=== PATIENT | male | born 1945 | race Caucasian/White ===

== ENCOUNTER → 2020-05-19 | Outpatient (CLI) | payer MEDICARE ==
--- NOTE | 2020-05-19 11:21 | Diagnostic Imaging Report ---
PROCEDURE: CT abdomen and pelvis without contrast. TECHNIQUE: Multiple contiguous axial images were obtained through the abdomen and pelvis without the use of intravenous contrast. Auto Exposure Controls were utilized during the CT exam to meet ALARA standards for radiation dose reduction. INDICATION: Prostate carcinoma. COMPARISON: No prior studies are available for comparison. FINDINGS: Calcified nodules in left lower lobe are noted consistent with granulomas. No liver mass is identified. Gallbladder is unremarkable. There is no biliary ductal dilatation. Pancreas and spleen are unremarkable apart from a subtle low-density region within the spleen measuring 2.2 cm. No adrenal mass is detected. No calculi or hydronephrosis is identified. Aorta is calcified but nonaneurysmal. No central retroperitoneal or mesenteric lymphadenopathy is identified. There is diverticulosis of the descending and sigmoid colon but no evidence of acute diverticulitis. The bowel loops are normal caliber. There is no obstruction. There is no free fluid. Bladder is unremarkable. Prostate is enlarged. No definite pelvic lymphadenopathy is identified. No osteoblastic lesions are seen. IMPRESSION: 1. No evidence of abdominal or pelvic lymphadenopathy. There is prostatomegaly and uncomplicated diverticulosis. There is a low-density lesion in the spleen which is indeterminate. The remainder of the study is unremarkable. Dictated by: Dictated on workstation # [id number]
--- NOTE | 2020-05-19 14:27 | Diagnostic Imaging Report ---
INDICATION: Prostate carcinoma. TECHNIQUE: The patient was administered 27 mCi of technetium 99m MDP intravenously and whole-body imaging was performed after a 3 hour delay. COMPARISON: No prior studies are available for comparison. FINDINGS: Normal uptake of activity by the axial and appendicular skeleton is noted. There is uptake by the kidneys with excretion into the urinary bladder. No suspicious foci are identified to suggest osseous metastatic disease. IMPRESSION: No scintigraphic evidence of osseous metastatic disease. Dictated by: Dictated on workstation # [id number]
== END ==
LOC: CARD 10:30
PROVIDERS: ATTEND Urology
DX: C61 Malignant neoplasm of prostate (principal)
CPT/HCPCS: 74176; 78306; A9503

== ENCOUNTER 2020-06-15 12:58 | Outpatient (RCR) | payer MEDICARE | END 2020-09-13 | disposition home or self-care (01) | LOC: ONC 12:58 | PROVIDERS: ATTEND Radiology Radiation Oncology | DX: C61 Malignant neoplasm of prostate (principal); I10 Essential (primary) hypertension; Z98.890 Other specified postprocedural states | CPT/HCPCS: 99204 ==

== ENCOUNTER 2021-01-19 05:29 | Outpatient (CLI) | payer MEDICARE ==
[~2021-01-19] VITALS: Ht 180.3 cm; Wt 94.5 kg
[2021-01-19] MEDS ORDERED: PERI8TAB2 PO (13:41)
[2021-01-19] MEDS ORDERED: PANT40TA52 PO (13:41)
[2021-01-19] MEDS ORDERED: TMSL.4C PO (13:41)
[2021-01-19] MEDS ORDERED: LORA10CA PO (13:41)
[2021-01-19] MEDS ORDERED: SIMV40TA25 PO (13:41)
== END 2021-01-19 14:12 | disposition home or self-care (01) ==
LOC: PREOP 05:29
PROVIDERS: ATTEND Urology
DX: Z01.818 Encounter for other preprocedural examination (principal)

== ENCOUNTER 2021-01-26 06:45 | Day surgery (SDC) | payer MEDICARE ==
[~2021-01-26] VITALS: Ht 180 cm; Wt 94.5 kg
[2021-01-26] VITALS (10 sets, daily range): BP systolic 106–153; BP diastolic 75–94
[~2021-01-26 06:45] MED LIST: LORA10CA PO; PANT40TA52 PO; PERI8TAB2 PO; SIMV40TA25 PO; TMSL.4C PO
[2021-01-26] MEDS ORDERED: cefTRIAXone 1,000 MG in WATER (STERILE) FOR INJECTION 10 ML IV ONE (07:00)
--- NOTE | 2021-01-26 07:19 | Progress Note-Pre Operative ---
Pre-Operative Progress Note H&P Reviewed The H&P was reviewed, patient examined and no changes noted. Date Seen by Provider: Jan 26, 2021 Time Seen by Provider: 07:18 Date H&P Reviewed: Jan 26, 2021 Time H&P Reviewed: 07:18 Pre-Operative Diagnosis: CA PROSTATE GALDINO HARVEY MD Jan 26, 2021 07:19
--- NOTE | 2021-01-26 07:22 | Progress Note-Post Operative ---
Post-Operative Progess Note Surgeon (s)/Prototype Engineer (s) Surgeon GALDINO HARVEY MD Prototype Engineer: MD SANTIAGO Pre-Operative Diagnosis CA PROSTATE Post-Operative Diagnosis SAME Procedure & Operative Findings Date of Procedure 01/26/21 Procedure Performed/Findings BRACHYTHERAPY, SPACE OAR, AND CYSTOGRAM Anesthesia Type GENERAL Estimated Blood Loss Estimated blood loss (mL): NEGLIGIBLE Specimens/Packing Specimens Removed NONE Packing: NONE GALDINO HARVEY MD Jan 26, 2021 07:22
--- NOTE | 2021-01-26 07:30 | Discharge Inst-Urology ---
Discharge Inst-Urology Reconcile Patient Problems Problems Reviewed?: Yes Final Diagnosis CA PROSTATE Patient Instructions/Follow Up Plan/Assessment/Instructions Discharge with kuhn and leg bag day time and large bag night time with instructions Come to office sunday 11am to DADA K[facility]n Please make appointment to been seen in office in 2 weeks. Rest till then Keep bowels soft and moving Showers, no bath Increase oral fluids for 48 hours and then as needed. Diet as tolerated. If questions or concerns contact your physician Or seek help at emergency department. GALDINO HARVEY MD Jan 26, 2021 07:30
[2021-01-26] MEDS: LACTATED RINGERS 1,000 ML IV PRN ×2 (07:41→11:07)
[2021-01-26] MEDS ORDERED: fentaNYL INJ 100 MCG/2 ML AMP ONE (09:32)
[2021-01-26] MEDS ORDERED: LIDOCAINE 2% 20 ML (XYLOCAINE) VIAL ONE (09:44)
[2021-01-26] MEDS ORDERED: LIDOCAINE PF 2% 5 ML (XYLOCAINE) VIAL ONE (09:44)
[2021-01-26] MEDS ORDERED: proPOfol 200 MG/20 ML (DIPRIVAN) VIAL IV ONE (09:44)
[2021-01-26] MEDS ORDERED: ONDANSETRON 4 MG/2 ML (SDV) Z0FRAN ONE (09:44)
[2021-01-26] MEDS ORDERED: BACITRACIN OINTMENT 28 GM TUBE ONE (09:50)
[2021-01-26] MEDS ORDERED: SEVOFLURANE (ULTANE) 15 ML INHAL SOLN ONE (10:38)
[2021-01-26] MEDS ORDERED: PHEN-640 PO (11:07)
[2021-01-26] MEDS ORDERED: CIPR-225 PO (11:07)
[2021-01-26] MEDS ORDERED: KETO10TA PO (11:07)
--- NOTE | 2021-01-26 12:52 | Diagnostic Imaging Report ---
INDICATION: Prostate carcinoma. TECHNIQUE: Single intraprocedural images prostate bed FINDINGS/ IMPRESSION: The hospital radiology department provided fluoroscopic imaging in support of an interventional procedure. A radiologist was not present. Please reference the operating provider's procedure note. Fluoroscopy Time: 16.6 seconds Dictated by: Dictated on workstation # [id number]
--- NOTE | 2021-01-26 13:32 | Anesthesia-General Post-Op ---
General Patient Condition Mental Status/LOC: Same as Preop Cardiovascular: Satisfactory Nausea/Vomiting: Absent Respiratory: Satisfactory Pain: Controlled Complications: Absent Post Op Complications Complications None Follow Up Care/Instructions Patient Instructions None needed. Anesthesia/Patient Condition Patient Condition Patient is doing well, no complaints, stable vital signs, no apparent adverse anesthesia problems. No complications reported per nursing. SHYANN LOTT CRNA Jan 26, 2021 13:32
== END 2021-01-26 13:30 | disposition home or self-care (01) ==
LOC: SDC 06:45
PROVIDERS: ATTEND Urology
DX: C61 Malignant neoplasm of prostate (principal); K21.9 Gastro-esophageal reflux disease without esophagitis; I25.10 Atherosclerotic heart disease of native coronary artery without angina pectoris; I10 Essential (primary) hypertension; E78.00 Pure hypercholesterolemia, unspecified; Z98.890 Other specified postprocedural states; Z79.899 Other long term (current) drug therapy
CPT/HCPCS: 55874; 55876; 76000; 76965; 77290; 77318; 77332; 77370; 77470; 77778; 87081; C1715 ×2; C1889; C2643

== ENCOUNTER 2021-02-13 14:36 | Emergency (ER) | payer MEDICARE ==
[~2021-02-13] VITALS: Ht 180 cm; Wt 94.0 kg
[~2021-02-13 14:36] MED LIST changes: +CIPR-225 PO; +KETO10TA PO; +PHEN-640 PO
--- NOTE | 2021-02-13 14:58 | ED GU-Male ---
General Chief Complaint: - Reproductive Stated Complaint: TROUBLE URINATING/ABD PROTRUSION Source: patient Exam Limitations: no limitations History of Present Illness Date Seen by Provider: Feb 13, 2021 Time Seen by Provider: 14:45 Initial Comments Patient to the ER by private conveyance from home with chief complaint of not being able to have a full neck duration since 6:00 yesterday evening. He is being treated by Dr. Harvey for prostatic cancer and recently had radioactive pellets placed. He was not having any discharge or hematuria or fevers. No nausea vomiting or abdominal pain just a feeling of fullness in his suprapubic region. No history of abdominal surgeries. He is not on blood thinners. Allergies and Home Medications Allergies Coded Allergies: No Known Drug Allergies (Unverified , 01/19/21) Patient Home Medication List Home Medication List Reviewed: Yes Ciprofloxacin HCl (Cipro) 500 Mg Tablet, 500 MG PO BID Prescribed by: KAITLYNN BARRIOS on 01/26/21 110 Ketorolac Tromethamine (Ketorolac Tromethamine) 10 Mg Tablet, 10 MG PO Q6H Prescribed by: KAITLYNN BARRIOS on 01/26/21 110 Loratadine (Claritin) 10 Mg Capsule, 10 MG PO DAILY, (Reported) Entered as Reported by: LANIE MAN on 01/19/21 134 Pantoprazole Sodium (Pantoprazole Sodium) 40 Mg Tablet.dr, 40 MG PO BID, (Reported) Entered as Reported by: LANIE MAN on 01/19/21 134 Perindopril Erbumine (Perindopril Erbumine) 8 Mg Tablet, 8 MG PO DAILY, (Reported) Entered as Reported by: LANIE MAN on 01/19/21 134 Phenazopyridine HCl (Pyridium) 200 Mg Tablet, 1 TAB PO TID Prescribed by: KAITLYNN BARRIOS on 01/26/21 110 Simvastatin (Simvastatin) 40 Mg Tablet, 40 MG PO DAILY, (Reported) Entered as Reported by: LANIE MAN on 01/19/21 134 Tamsulosin HCl (Flomax) 0.4 Mg Cap, 0.4 MG PO DAILY, (Reported) Entered as Reported by: LANIE MAN on 01/19/21 134 Review of Systems Review of Systems Constitutional: No chills, No diaphoresis EENTM: No ear discharge, No ear pain Respiratory: No cough, No short of breath Cardiovascular: No chest pain, No edema Gastrointestinal: abdominal pain; No constipation, No diarrhea, No nausea Genitourinary: see HPI; denies dysuria Musculoskeletal: No back pain, No joint pain All Other Systemes Reviewed Negative Unless Noted: Yes Past Szwcnzo-Kdfugi-Dpachv Hx Patient Social History Tobacco Use?: No Use of E-Cig and/or Vaping dev: No Substance use?: No Immunizations Up To Date First/Initial COVID19 Vaccinat: AUGUST 19, 2020 Second COVID19 Vaccination Maged: AUGUST 19, 2020 Seasonal Allergies Seasonal Allergies: Yes Past Medical History Surgeries: Yes (TRUS PROSTATE BX, COLONOSCOPY, HEART CATH, ROTATOR CUFF) Respiratory: No Currently Using CPAP: No Currently Using BIPAP: No Cardiac: Yes (CARDIOVASCULAR DX, CARDIAC STENTS) Heart Attack, High Cholesterol, Hypertension Neurological: No Genitourinary: Yes (BPH WITH LUTS) Benign Prostatic Hyperpl, Prostate Problems Gastrointestinal: Yes Gastroesophageal Reflux, Hiatal Hernia Musculoskeletal: Yes Arthritis Endocrine: No HEENT: Yes Cataract Hearing Impairment: Hard of Hearing Prostate Psychosocial: No Integumentary: No Blood Disorders: No Physical Exam Vital Signs Vital Signs - First Documented 02/13/21 14:45 Temp 36.4 Pulse 91 Resp 18 B/P (MAP) 189/100 (129) Pulse Ox 96 Capillary Refill : Height, Weight, BMI Height: '" Weight: lbs. oz. kg; 29.16 BMI Method: General Appearance: WD/WN, no apparent distress HEENT: PERRL/EOMI, pharynx normal Neck: full range of motion, normal inspection Cardiovascular: normal peripheral pulses, regular rate, rhythm Respiratory: lungs clear, normal breath sounds, no respiratory distress, no accessory muscle use Gastrointestinal: normal bowel sounds, soft, tenderness (Suprapubic with palpable) Neurologic/Psychiatric: alert, normal mood/affect, oriented x 3 Skin: normal color, warm/dry Progress/Results/Core Measures Suspected Sepsis SIRS Temperature: Pulse: Respiratory Rate: Laboratory Tests 02/13/21 14:52: White Blood Count 7.4 Blood Pressure / Mean: Laboratory Tests 02/13/21 14:52: Creatinine 0.96, Platelet Count 198, Total Bilirubin 0.9 Results/Orders Lab Results Laboratory Tests Test 02/13/21 14:52 02/13/21 15:15 Range/Units White Blood Count 7.4 4.3-11.0 10^3/uL Red Blood Count 4.00 L 4.30-5.52 10^6/uL Hemoglobin 12.5 L 13.3-17.7 g/dL Hematocrit 37 L 40-54 % Mean Corpuscular Volume 92 80-99 fL Mean Corpuscular Hemoglobin 31 25-34 pg Mean Corpuscular Hemoglobin Concent 34 32-36 g/dL Red Cell Distribution Width 12.0 10.0-14.5 % Platelet Count 198 130-400 10^3/uL Mean Platelet Volume 9.5 9.0-12.2 fL Immature Granulocyte % (Auto) 1 % Neutrophils (%) (Auto) 75 42-75 % Lymphocytes (%) (Auto) 14 12-44 % Monocytes (%) (Auto) 9 0-12 % Eosinophils (%) (Auto) 2 0-10 % Basophils (%) (Auto) 1 0-10 % Neutrophils # (Auto) 5.5 1.8-7.8 10^3/uL Lymphocytes # (Auto) 1.0 1.0-4.0 10^3/uL Monocytes # (Auto) 0.7 0.0-1.0 10^3/uL Eosinophils # (Auto) 0.1 0.0-0.3 10^3/uL Basophils # (Auto) 0.0 0.0-0.1 10^3/uL Immature Granulocyte # (Auto) 0.1 0.0-0.1 10^3/uL Sodium Level 138 135-145 MMOL/L Potassium Level 3.0 L 3.6-5.0 MMOL/L Chloride Level 102 98-107 MMOL/L Carbon Dioxide Level 22 21-32 MMOL/L Anion Gap 14 5-14 MMOL/L Blood Urea Nitrogen 9 7-18 MG/DL Creatinine 0.96 0.60-1.30 MG/DL Estimat Glomerular Filtration Rate 76 BUN/Creatinine Ratio 9 Glucose Level 111 H 70-105 MG/DL Calcium Level 9.2 8.5-10.1 MG/DL Corrected Calcium 9.4 8.5-10.1 MG/DL Total Bilirubin 0.9 0.1-1.0 MG/DL Aspartate Amino Transf (AST/SGOT) 19 5-34 U/L Alanine Aminotransferase (ALT/SGPT) 38 0-55 U/L Alkaline Phosphatase 77 40-136 U/L C-Reactive Protein High Sensitivity 0.90 H 0.00-0.50 MG/DL Total Protein 6.2 L 6.4-8.2 GM/DL Albumin 3.7 3.2-4.5 GM/DL Urine Color YELLOW Urine Clarity CLEAR Urine pH 6.0 5-9 Urine Specific [place] <=1.005 1.016-1.022 Urine Protein NEGATIVE NEGATIVE Urine Glucose (UA) NEGATIVE NEGATIVE Urine Ketones NEGATIVE NEGATIVE Urine Nitrite NEGATIVE NEGATIVE Urine Bilirubin NEGATIVE NEGATIVE Urine Urobilinogen 0.2 < = 1.0 MG/DL Urine Leukocyte Esterase NEGATIVE NEGATIVE Urine RBC (Auto) 3+ H NEGATIVE Urine RBC 10-25 H /HPF Urine WBC NONE /HPF Urine Crystals NONE /LPF Urine Bacteria NEGATIVE /HPF Urine Casts NONE /LPF Urine Mucus NEGATIVE /LPF Urine Culture Indicated NO My Orders Orders - SHABNAM WITT Bladder Scan (02/13/21 14:41) Ed Iv/Invasive Line Start (02/13/21 14:54) Cbc With Automated Diff (02/13/21 14:54) Comprehensive Metabolic Panel (02/13/21 14:54) Hs C Reactive Protein (02/13/21 14:54) Ua Culture If Indicated (02/13/21 14:59) Lidocaine 2% (Urojet) (Xylocaine Urojet) (02/13/21 15:00) Catheter(Urinary) Insert & Ass 03,15 (02/13/21 14:59) Medications Given in ED Current Medications Medications Dose Ordered Sig/Maurice Route Start Time Stop Time Status Last Admin Dose Admin Lidocaine HCl 10 ml ONCE ONCE TOP 02/13/21 15:00 02/13/21 15:01 DC 02/13/21 15:19 10 ML Vital Signs/I&O 02/13/21 14:45 Temp 36.4 Pulse 91 Resp 18 B/P (MAP) 189/100 (129) Pulse Ox 96 Capillary Refill : Progress Note #1: Time: 14:58 Progress Note If the bladder scan is positive we will put a Duffy catheter and using Urojet and decompress his bladder getting some urine. Progress Note #2: Time: 16:12 Progress Note Bladder scan revealed 500 cc however he put out a liter and was clamped for about half an hour before unclamping and he put out another liter of urine. He feels much more comfortable. He has worn a leg bag and Duffy catheter in the past. Conservative teaching was given. He has follow-up appointment in about [address] Harvey, urology Departure Impression Primary Impression: Acquired urinary tract obstruction Disposition: 01 HOME, SELF-CARE Condition: Improved Departure-Patient Inst. Decision time for Depature: 16:13 Referrals: BENTLEY MAN MD (PCP/Family) Primary Care Physician GALDINO HARVEY MD Patient Instructions: Urinary Obstruction (DC) Add. Discharge Instructions: Drink plenty of fluids. Keep the catheter area clean with regular soap and water only. Keep your follow-up appointment with Dr. Harvey, urology. If you are having difficulty getting urine to flow from the catheter then return to the ER or call the urologist during business hours I suspect the area on your right forehead may be a squamous cell cancer and I would recommend you follow-up with your primary care doctor or box worker for biopsy and removal. All discharge instructions reviewed with patient and/or family. Voiced understanding. Copy Copies To 1: GALDINO HARVEY MD, TITUS J Feb 13, 2021 14:58
[2021-02-13] MEDS ORDERED: LIDOCAINE UROJET 2% GEL 10 ML PKG TOP ONE (15:00)
[2021-02-13 15:04] LABS: BASOPHILS % (AUTO) 1 % (0-10); EOSINOPHILS # (AUTO) 0.1 10^3/uL (0.0-0.3); EOSINOPHILS % (AUTO) 2 % (0-10); HEMATOCRIT 37 % (40-54); HEMOGLOBIN 12.5 g/dL (13.3-17.7); LYMPHOCYTES % (AUTO) 14 % (12-44); MEAN CORPUSCULAR HEMOGLOBIN 31 pg (25-34); MEAN CORPUSCULAR HGB CONC 34 g/dL (32-36); MEAN CORPUSCULAR VOLUME 92 fL (80-99); MEAN PLATELET VOLUME 9.5 fL (9.0-12.2); MONOCYTES # (AUTO) 0.7 10^3/uL (0.0-1.0); MONOCYTES % (AUTO) 9 % (0-12); NEUTROPHILS # (AUTO) 5.5 10^3/uL (1.8-7.8); NEUTROPHILS % (AUTO) 75 % (42-75); PLATELET COUNT 198 10^3/uL (130-400); WHITE BLOOD COUNT 7.4 10^3/uL (4.3-11.0)
[2021-02-13 15:12] LABS: ALBUMIN 3.7 GM/DL (3.2-4.5)
[2021-02-13 15:13] LABS: CALCIUM 9.2 MG/DL (8.5-10.1)
[2021-02-13 15:15] LABS: TOTAL PROTEIN 6.2 GM/DL (6.4-8.2)
[2021-02-13 15:16] LABS: BILIRUBIN,TOTAL 0.9 MG/DL (0.1-1.0)
[2021-02-13 15:18] LABS: CREATININE SERUM 0.96 MG/DL (0.60-1.30)
[2021-02-13 15:20] LABS: BILIRUBIN,URINE NEGATIVE (NEGATIVE); CLARITY,URINE CLEAR; COLOR,URINE YELLOW; GLUCOSE, URINE (UA) NEGATIVE (NEGATIVE); KETONES,URINE NEGATIVE (NEGATIVE); LEUKOCYTE ESTERASE ,URINE NEGATIVE (NEGATIVE); NITRITE,URINE NEGATIVE (NEGATIVE); PROTEIN,URINE NEGATIVE (NEGATIVE)
[2021-02-13 15:29] LABS: BACTERIA,URINE NEGATIVE /HPF
[2021-02-13 16:32] VITALS: BP 152/72
== END 2021-02-13 16:32 | disposition home or self-care (01) ==
LOC: EDUNIT# 14:36 → ER 14:39
DX: C61 Malignant neoplasm of prostate (principal); N13.8 Other obstructive and reflux uropathy; I25.2 Old myocardial infarction; I10 Essential (primary) hypertension; E78.00 Pure hypercholesterolemia, unspecified; N40.0 Benign prostatic hyperplasia without lower urinary tract symptoms; K21.9 Gastro-esophageal reflux disease without esophagitis; Z79.899 Other long term (current) drug therapy
CPT/HCPCS: 36415; 51702; 80053; 81000; 85025; 86141

== ENCOUNTER 2021-02-18 10:54 | Emergency (ER) | payer MEDICARE ==
[~2021-02-18] VITALS: Ht 178 cm; Wt 92.1 kg
[2021-02-18 11:06] VITALS: BP 149/95
--- NOTE | 2021-02-18 11:27 | ED GU-Male ---
General Stated Complaint: CATHETER CLOGGED Source: patient Exam Limitations: no limitations History of Present Illness Date Seen by Provider: Feb 18, 2021 Time Seen by Provider: 11:25 Initial Comments To ER with reports of concern that his catheter is clogged. Sensation of full bladder and feels like the catheter is pulling tight. Timing/Duration: constant Severity/Quality: cramping Location: suprapubic Radiation: none Activities at Onset: none Prior Genitourinary Problems: none Allergies and Home Medications Allergies Coded Allergies: No Known Drug Allergies (Unverified , 01/19/21) Patient Home Medication List Home Medication List Reviewed: Yes Ciprofloxacin HCl (Cipro) 500 Mg Tablet, 500 MG PO BID Prescribed by: KAITLYNN BARRIOS on 01/26/21 110 Ketorolac Tromethamine (Ketorolac Tromethamine) 10 Mg Tablet, 10 MG PO Q6H Prescribed by: KAITLYNN BARRIOS on 01/26/21 110 Loratadine (Claritin) 10 Mg Capsule, 10 MG PO DAILY, (Reported) Entered as Reported by: LANIE MAN on 01/19/21 1341 Pantoprazole Sodium (Pantoprazole Sodium) 40 Mg Tablet.dr, 40 MG PO BID, (Reported) Entered as Reported by: LANIE MAN on 01/19/21 1341 Perindopril Erbumine (Perindopril Erbumine) 8 Mg Tablet, 8 MG PO DAILY, (Reported) Entered as Reported by: LANIE MAN on 01/19/21 1341 Phenazopyridine HCl (Pyridium) 200 Mg Tablet, 1 TAB PO TID Prescribed by: KAITLYNN BARRIOS on 01/26/21 1107 Simvastatin (Simvastatin) 40 Mg Tablet, 40 MG PO DAILY, (Reported) Entered as Reported by: LANIE MAN on 01/19/21 1341 Tamsulosin HCl (Flomax) 0.4 Mg Cap, 0.4 MG PO DAILY, (Reported) Entered as Reported by: LANIE MAN on 01/19/21 1341 Review of Systems Review of Systems Constitutional: see HPI EENTM: see HPI Respiratory: no symptoms reported Cardiovascular: no symptoms reported Genitourinary: see HPI Musculoskeletal: no symptoms reported Skin: no symptoms reported Psychiatric/Neurological: No Symptoms Reported Endocrine: No Symptoms Reported Hematologic/Lymphatic: No Symptoms Reported Past Prtfouv-Gikhwi-Qpltsz Hx Immunizations Up To Date First/Initial COVID19 Vaccinat: J AYUSH J AUGUST Second COVID19 Vaccination Maged: AUGUST 19, 2020 Seasonal Allergies Seasonal Allergies: Yes Past Medical History Surgeries: Yes (TRUS PROSTATE BX, COLONOSCOPY, HEART CATH, ROTATOR CUFF) Respiratory: No Currently Using CPAP: No Currently Using BIPAP: No Cardiac: Yes (CARDIOVASCULAR DX, CARDIAC STENTS) Heart Attack, High Cholesterol, Hypertension Neurological: No Genitourinary: Yes (BPH WITH LUTS) Benign Prostatic Hyperpl, Prostate Problems Gastrointestinal: Yes Gastroesophageal Reflux, Hiatal Hernia Musculoskeletal: Yes Arthritis Endocrine: No HEENT: Yes Cataract Hearing Impairment: Hard of Hearing Prostate Psychosocial: No Integumentary: No Blood Disorders: No Physical Exam Vital Signs Capillary Refill : Height, Weight, BMI Height: '" Weight: lbs. oz. kg; 29.00 BMI Method: General Appearance: WD/WN, no apparent distress HEENT: PERRL/EOMI, normal ENT inspection Neck: non-tender, full range of motion Respiratory: no respiratory distress, no accessory muscle use Gastrointestinal: normal bowel sounds, non tender, soft Neurologic/Psychiatric: alert, normal mood/affect, oriented x 3 Skin: normal color, warm/dry Progress/Results/Core Measures Suspected Sepsis SIRS Temperature: Pulse: Respiratory Rate: Blood Pressure / Mean: Results/Orders My Orders Orders - GELA PARIS APRN Lidocaine 2% (Urojet) (Xylocaine Urojet) (02/18/21 11:30) Vital Signs/I&O Capillary Refill : Departure Communication (Admissions) I personally removed the previous 16 [place] Duffy catheter, used a Urojet then reinserted a 16 [place] Duffy catheter. Immediate return of about 5200 mL of clear yellow urine. Attached to a leg bag. Impression Primary Impression: Prostate cancer Additional Impression: Duffy catheter problem Disposition: 01 HOME, SELF-CARE Condition: Stable Departure-Patient Inst. Decision time for Depature: 11:28 Referrals: BENTLEY MAN MD (PCP/Family) Primary Care Physician Patient Instructions: Urinary Tract Infection, Adult (DC) Add. Discharge Instructions: 1. Take the phenazopyridine medication 3 times a day for 2 days. This will help to anesthetize the bladder and provide additional pain relief. Do not be alarmed when this turns your urine a dark orange color. Scripts Phenazopyridine HCl (Pyridium) 100 Mg Tablet 100 MG PO TID, #6 TAB Prov: GELA PARIS APRN 02/18/21 GELA PARIS APRN Feb 18, 2021 11:27
[2021-02-18] MEDS ORDERED: LIDOCAINE UROJET 2% GEL 10 ML PKG TOP ONE (11:30)
[2021-02-18] MEDS ORDERED: PHEN-639 PO (11:50)
[2021-02-18 11:56] LABS: BILIRUBIN,URINE NEGATIVE (NEGATIVE); CLARITY,URINE SL CLOUDY; COLOR,URINE YELLOW; GLUCOSE, URINE (UA) NEGATIVE (NEGATIVE); KETONES,URINE NEGATIVE (NEGATIVE); LEUKOCYTE ESTERASE ,URINE 3+ (NEGATIVE); NITRITE,URINE NEGATIVE (NEGATIVE); PH,URINE 7.5 (5-9); PROTEIN,URINE TRACE (NEGATIVE)
[2021-02-18 12:12] LABS: BACTERIA,URINE FEW /HPF; SQUAMOUS EPITHELIAL CELL,UR RARE /HPF
== END 2021-02-18 11:55 | disposition home or self-care (01) ==
LOC: EDUNIT# 10:54 → ER 10:56
DX: C61 Malignant neoplasm of prostate (principal); T83.098A Other mechanical complication of other urinary catheter, initial encounter; I25.2 Old myocardial infarction; I10 Essential (primary) hypertension; E78.00 Pure hypercholesterolemia, unspecified; N40.0 Benign prostatic hyperplasia without lower urinary tract symptoms; K21.9 Gastro-esophageal reflux disease without esophagitis; Z79.899 Other long term (current) drug therapy
CPT/HCPCS: 51702; 81000; 87077; 87088; 87186

== ENCOUNTER 2021-02-23 08:45 | Outpatient (RCR) | payer MEDICARE ==
[~2021-02-23 08:45] MED LIST changes: +PHEN-639 PO
[2021-02-23] MEDS ORDERED: SULF1TAB38 PO (16:31)
== END 2021-03-16 | disposition home or self-care (01) ==
LOC: ONC 08:45
PROVIDERS: ATTEND Radiology Radiation Oncology
DX: Z51.0 Encounter for antineoplastic radiation therapy (principal); C61 Malignant neoplasm of prostate; I10 Essential (primary) hypertension; E78.00 Pure hypercholesterolemia, unspecified; Z98.890 Other specified postprocedural states
CPT/HCPCS: 76873; 77290

== ENCOUNTER 2021-02-23 15:32 | Emergency (ER) | payer MEDICARE ==
[~2021-02-23] VITALS: Ht 180 cm; Wt 90.0 kg
--- NOTE | 2021-02-23 15:35 | ED GU-Male ---
General Stated Complaint: CATHETER REMOVED UNABLE TO URINATE History of Present Illness Date Seen by Provider: Feb 23, 2021 Time Seen by Provider: 15:40 Initial Comments 75-year-old male presents with urinary retention. Patient reports that he has a history of prostate cancer, has "bees" for treatment. That he was seen around 9 AM this morning at the oncology office when they removed his Duffy. That he has been unable to urinate outside of a few dribbles since then. He has significant pain from it. He reports that this is his fourth Duffy recently since they have been unable to urinate every time he is taken out and has not been more than about 24 hours. He denies any fevers chills nausea or vomiting. He has some mild discomfort in the suprapubic region. Allergies and Home Medications Allergies Coded Allergies: No Known Drug Allergies (Unverified , 01/19/21) Patient Home Medication List Home Medication List Reviewed: Yes Ciprofloxacin HCl (Cipro) 500 Mg Tablet, 500 MG PO BID Prescribed by: KAITLYNN BARRIOS on 01/26/21 1107 Ketorolac Tromethamine (Ketorolac Tromethamine) 10 Mg Tablet, 10 MG PO Q6H Prescribed by: KAITLYNN BARRIOS on 01/26/21 110 Loratadine (Claritin) 10 Mg Capsule, 10 MG PO DAILY, (Reported) Entered as Reported by: LANIE MAN on 01/19/21 1341 Pantoprazole Sodium (Pantoprazole Sodium) 40 Mg Tablet.dr, 40 MG PO BID, (Reported) Entered as Reported by: LANIE MAN on 01/19/21 1341 Perindopril Erbumine (Perindopril Erbumine) 8 Mg Tablet, 8 MG PO DAILY, (Reported) Entered as Reported by: LANIE MAN on 01/19/21 1341 Phenazopyridine HCl (Pyridium) 200 Mg Tablet, 1 TAB PO TID Prescribed by: KAITLYNN BARRIOS on 01/26/21 1107 Phenazopyridine HCl (Pyridium) 100 Mg Tablet, 100 MG PO TID Prescribed by: GELA PARIS on 02/18/21 1150 Simvastatin (Simvastatin) 40 Mg Tablet, 40 MG PO DAILY, (Reported) Entered as Reported by: LANIE MAN on 01/19/21 1341 Tamsulosin HCl (Flomax) 0.4 Mg Cap, 0.4 MG PO DAILY, (Reported) Entered as Reported by: LANIE Porter DONOVAN on 01/19/21 1341 Review of Systems Review of Systems Constitutional: No chills, No fever EENTM: no symptoms reported Respiratory: no symptoms reported Cardiovascular: no symptoms reported Gastrointestinal: no symptoms reported Genitourinary: see HPI Musculoskeletal: no symptoms reported Skin: no symptoms reported Psychiatric/Neurological: No Symptoms Reported Endocrine: No Symptoms Reported Past Wttqvcg-Uneigh-Tamyuo Hx Immunizations Up To Date First/Initial COVID19 Vaccinat: August Second COVID19 Vaccination Maged: AND August Seasonal Allergies Seasonal Allergies: Yes Past Medical History Surgeries: Yes (TRUS PROSTATE BX, COLONOSCOPY, HEART CATH, ROTATOR CUFF) Respiratory: No Currently Using CPAP: No Currently Using BIPAP: No Cardiac: Yes (CARDIOVASCULAR DX, CARDIAC STENTS) Heart Attack, High Cholesterol, Hypertension Neurological: No Genitourinary: Yes (BPH WITH LUTS) Benign Prostatic Hyperpl, Prostate Problems Gastrointestinal: Yes Gastroesophageal Reflux, Hiatal Hernia Musculoskeletal: Yes Arthritis Endocrine: No HEENT: Yes Cataract Hearing Impairment: Hard of Hearing Prostate Psychosocial: No Integumentary: No Blood Disorders: No Physical Exam Vital Signs Vital Signs - First Documented 02/23/21 15:35 Temp 37.0 Pulse 112 Resp 18 B/P (MAP) 171/103 (125) Pulse Ox 97 O2 Delivery Room Air Capillary Refill : Height, Weight, BMI Height: '" Weight: lbs. oz. kg; 29.00 BMI Method: General Appearance: mild distress Cardiovascular: normal peripheral pulses, regular rate, rhythm Respiratory: lungs clear, normal breath sounds Gastrointestinal: soft, tenderness (Mild suprapubic) Extremities: normal range of motion, non-tender Neurologic/Psychiatric: alert, normal mood/affect, oriented x 3 Skin: normal color, warm/dry Progress/Results/Core Measures Suspected Sepsis SIRS Temperature: Pulse: Respiratory Rate: Blood Pressure / Mean: Results/Orders Lab Results Laboratory Tests Test 02/23/21 15:55 Range/Units Urine Color YELLOW Urine Clarity CLEAR Urine pH 6.0 5-9 Urine Specific [place] 1.010 L 1.016-1.022 Urine Protein TRACE H NEGATIVE Urine Glucose (UA) TRACE H NEGATIVE Urine Ketones NEGATIVE NEGATIVE Urine Nitrite POSITIVE H NEGATIVE Urine Bilirubin NEGATIVE NEGATIVE Urine Urobilinogen 1.0 < = 1.0 MG/DL Urine Leukocyte Esterase 1+ H NEGATIVE Urine RBC (Auto) 1+ H NEGATIVE Urine RBC 0-2 /HPF Urine WBC 5-10 H /HPF Urine Crystals NONE /LPF Urine Bacteria FEW H /HPF Urine Casts NONE /LPF Urine Mucus NEGATIVE /LPF Urine Culture Indicated YES My Orders Orders - SEPULVEDA,YURY L DO Lidocaine 2% (Urojet) (Xylocaine Urojet) (02/23/21 15:45) Catheter(Urinary) Insert & Ass 03,15 (02/23/21 15:41) Ua Culture If Indicated (02/23/21 15:42) Urine Culture (02/23/21 15:55) Medications Given in ED Current Medications Medications Dose Ordered Sig/Maurice Route Start Time Stop Time Status Last Admin Dose Admin Lidocaine HCl 10 ml ONCE ONCE TOP 02/23/21 15:45 02/23/21 15:46 DC 02/23/21 15:45 10 ML Vital Signs/I&O 02/23/21 15:35 Temp 37.0 Pulse 112 Resp 18 B/P (MAP) 171/103 (125) Pulse Ox 97 O2 Delivery Room Air Capillary Refill : Departure Impression Primary Impression: Urinary tract infection Qualified Codes: T83.511A - Infection and inflammatory reaction due to indwelling urethral catheter, initial encounter; N39.0 - Urinary tract infection, site not specified Disposition: 01 HOME, SELF-CARE Condition: Stable Departure-Patient Inst. Referrals: BENTLEY MAN MD (PCP/Family) Primary Care Physician Patient Instructions: How to Care for Your Duffy Catheter, Male, Urinary Tract Infection, Adult ED Add. Discharge Instructions: Follow-up with Dr. Kathy Julian Sulfamethoxazole/Trimethoprim (Bactrim Ds Tablet) 1 Each Tablet 1 EACH PO BID, #14 TAB Prov: SEPULVEDA,YURY L DO 02/23/21 SEPULVEDA,YURY L DO Feb 23, 2021 15:35
[2021-02-23] MEDS ORDERED: LIDOCAINE UROJET 2% GEL 10 ML PKG TOP ONE (15:45)
[2021-02-23 16:03] LABS: BILIRUBIN,URINE NEGATIVE (NEGATIVE); CLARITY,URINE CLEAR; COLOR,URINE YELLOW; GLUCOSE, URINE (UA) TRACE (NEGATIVE); KETONES,URINE NEGATIVE (NEGATIVE); LEUKOCYTE ESTERASE ,URINE 1+ (NEGATIVE); NITRITE,URINE POSITIVE (NEGATIVE); PROTEIN,URINE TRACE (NEGATIVE)
[2021-02-23 16:20] LABS: BACTERIA,URINE FEW /HPF; RBC,URINE 0-2 /HPF
[2021-02-23] MEDS ORDERED: SULF1TAB38 PO (16:31)
[2021-02-23 16:41] VITALS: BP 171/103
== END 2021-02-23 16:41 | disposition home or self-care (01) ==
LOC: EDUNIT# 15:32 → ER 15:34
DX: N39.0 Urinary tract infection, site not specified (principal); I10 Essential (primary) hypertension; I25.2 Old myocardial infarction; N40.0 Benign prostatic hyperplasia without lower urinary tract symptoms; E78.00 Pure hypercholesterolemia, unspecified; K21.9 Gastro-esophageal reflux disease without esophagitis; Z79.899 Other long term (current) drug therapy
CPT/HCPCS: 51702; 81000; 87077; 87088; 87186

== ENCOUNTER 2021-03-24 21:18 | Emergency (ER) | payer MEDICARE ==
[~2021-03-24] VITALS: Ht 180 cm; Wt 91.9 kg
[~2021-03-24 21:18] MED LIST changes: +SULF1TAB38 PO
[2021-03-24 21:56] LABS: BILIRUBIN,URINE NEGATIVE (NEGATIVE); CLARITY,URINE CLEAR; COLOR,URINE YELLOW; GLUCOSE, URINE (UA) NEGATIVE (NEGATIVE); KETONES,URINE NEGATIVE (NEGATIVE); LEUKOCYTE ESTERASE ,URINE 3+ (NEGATIVE); NITRITE,URINE NEGATIVE (NEGATIVE); PROTEIN,URINE NEGATIVE (NEGATIVE)
--- NOTE | 2021-03-24 21:59 | ED General ---
General Chief Complaint: - Reproductive Stated Complaint: URINARY PAIN Nursing Triage Note: Pt reports he had his urinary cath taken out yesterday and has not been able to void but "dribbles" since. Pt had prostate surgery Jan 25 and had cath in for 3weeks. Reports burning with urination. Bladder scan of 900cc upon arrival. History of Present Illness Date Seen by Provider: Mar 24, 2021 Time Seen by Provider: 21:56 Initial Comments Patient presenting to the emergency department for evaluation of acute urinary retention. He says he had prostate surgery with Dr. Raygoza in mid January and has intermittent issues with urinary retention since that time as he has had a Duffy catheter placed 4 times and he had his Duffy catheter removed yesterday in the office. He says since this evening he has not been able to urinate except for very small dribbles and he has significant discomfort in his lower abdomen. He denies fevers chills nausea vomiting back pain. He is in no acute distress with normal vital signs. Allergies and Home Medications Allergies Coded Allergies: No Known Drug Allergies (Unverified , 01/19/21) Patient Home Medication List Home Medication List Reviewed: Yes Ciprofloxacin HCl (Cipro) 500 Mg Tablet, 500 MG PO BID Prescribed by: KAITLYNN BARRIOS on 01/26/21 110 Ketorolac Tromethamine (Ketorolac Tromethamine) 10 Mg Tablet, 10 MG PO Q6H Prescribed by: KAITLYNN BARRIOS on 01/26/21 1107 Loratadine (Claritin) 10 Mg Capsule, 10 MG PO DAILY, (Reported) Entered as Reported by: LANIE MAN on 01/19/21 134 Pantoprazole Sodium (Pantoprazole Sodium) 40 Mg Tablet.dr, 40 MG PO BID, (Reported) Entered as Reported by: LANIE MAN on 01/19/21 1341 Perindopril Erbumine (Perindopril Erbumine) 8 Mg Tablet, 8 MG PO DAILY, (Reported) Entered as Reported by: LANIE MAN on 01/19/21 1341 Phenazopyridine HCl (Pyridium) 200 Mg Tablet, 1 TAB PO TID Prescribed by: KAITLYNN BARRIOS on 01/26/21 110 Phenazopyridine HCl (Pyridium) 100 Mg Tablet, 100 MG PO TID Prescribed by: GELA PARIS on 02/18/21 1150 Simvastatin (Simvastatin) 40 Mg Tablet, 40 MG PO DAILY, (Reported) Entered as Reported by: LANIE MAN on 01/19/21 1341 Sulfamethoxazole/Trimethoprim (Bactrim Ds Tablet) 1 Each Tablet, 1 EACH PO BID Prescribed by: YURY SEPULVEDA on 02/23/21 1631 Tamsulosin HCl (Flomax) 0.4 Mg Cap, 0.4 MG PO DAILY, (Reported) Entered as Reported by: LANIE MAN on 01/19/21 1341 Review of Systems Review of Systems Constitutional: no symptoms reported EENTM: no symptoms reported Respiratory: no symptoms reported Cardiovascular: no symptoms reported Gastrointestinal: abdominal pain Genitourinary: decreased output, hesitancy Psychiatric/Neurological: No Symptoms Reported All Other Systems Reviewed Negative Unless Noted: Yes Past Tipypvn-Lgywgq-Mprzri Hx Patient Social History Tobacco Use?: No Use of E-Cig and/or Vaping dev: No Substance use?: No Alcohol Use?: No Pt feels they are or have been: No Immunizations Up To Date Influenza Vaccine Up-to-Date: No; Not Current First/Initial COVID19 Vaccinat: Radio Rebel August 2020 Second COVID19 Vaccination Maged: August Third COVID19 Vaccination Date: August Seasonal Allergies Seasonal Allergies: Yes Past Medical History Surgeries: Yes (TRUS PROSTATE BX, COLONOSCOPY, HEART CATH, ROTATOR CUFF) Respiratory: No Currently Using CPAP: No Currently Using BIPAP: No Cardiac: Yes (CARDIOVASCULAR DX, CARDIAC STENTS) Heart Attack, High Cholesterol, Hypertension Neurological: No Genitourinary: Yes (BPH WITH LUTS) Benign Prostatic Hyperpl, Prostate Problems Gastrointestinal: Yes Gastroesophageal Reflux, Hiatal Hernia Musculoskeletal: Yes Arthritis Endocrine: No HEENT: Yes Cataract Hearing Impairment: Hard of Hearing Prostate Psychosocial: No Integumentary: No Blood Disorders: No Physical Exam Vital Signs Vital Signs - First Documented 03/24/21 21:20 Temp 36.4 Pulse 111 B/P (MAP) 159/101 (120) Pulse Ox 96 O2 Delivery Room Air Capillary Refill : Less Than 3 Seconds Height, Weight, BMI Height: '" Weight: lbs. oz. kg; 28.00 BMI Method: General Appearance: No Apparent Distress Respiratory: No Respiratory Distress Cardiovascular: Regular Rate, Rhythm Gastrointestinal: Non Tender, Soft Back: No CVA Tenderness Neurologic/Psychiatric: Alert, Oriented x3 Skin: Warm/Dry Progress/Results/Core Measures Suspected Sepsis SIRS Temperature: Pulse: 111 Respiratory Rate: Blood Pressure 159 /101 Mean: 120 Results/Orders Lab Results Laboratory Tests Test 03/24/21 21:45 Range/Units Urine Color YELLOW Urine Clarity CLEAR Urine pH 6.0 5-9 Urine Specific [place] 1.010 L 1.016-1.022 Urine Protein NEGATIVE NEGATIVE Urine Glucose (UA) NEGATIVE NEGATIVE Urine Ketones NEGATIVE NEGATIVE Urine Nitrite NEGATIVE NEGATIVE Urine Bilirubin NEGATIVE NEGATIVE Urine Urobilinogen 0.2 < = 1.0 MG/DL Urine Leukocyte Esterase 3+ H NEGATIVE Urine RBC (Auto) 3+ H NEGATIVE Urine RBC 5-10 H /HPF Urine WBC >100 H /HPF Urine Squamous Epithelial Cells RARE /HPF Urine Crystals NONE /LPF Urine Bacteria FEW H /HPF Urine Casts NONE /LPF Urine Mucus NEGATIVE /LPF Urine Yeast RARE /HPF Urine Culture Indicated YES My Orders Orders - ROCKY MONTOYA DO Ua Culture If Indicated (03/24/21 21:38) Urine Culture (03/24/21 21:45) Vital Signs/I&O 03/24/21 21:20 Temp 36.4 Pulse 111 B/P (MAP) 159/101 (120) Pulse Ox 96 O2 Delivery Room Air Capillary Refill : Less Than 3 Seconds Blood Pressure Mean: 120 Progress Note : Progress Note Patient had a Duffy catheter placed with resolution in his lower abdominal discomfort with approximately 1 L of fluid drained. Urine shows large amount of white blood cells but few bacteria. We will go ahead and start patient on Keflex while awaiting culture results and his follow-up with his urologist. patient told to call Dr. Shepard office tomorrow for follow-up and further instructions. Patient will be discharged in stable condition. Departure Impression Primary Impression: Acute urinary retention Disposition: 01 HOME, SELF-CARE Condition: Stable Departure-Patient Inst. Referrals: BENTLEY MAN MD (PCP/Family) Primary Care Physician Patient Instructions: Urinary Retention (DC) Scripts Cephalexin (Cephalexin) 500 Mg Tablet 500 MG PO TID for 7 Days, #21 TAB Prov: ROCKY MONTOYA DO 03/24/21 ROCKY MONTOYA DO Mar 24, 2021 21:59
[2021-03-24 22:06] LABS: BACTERIA,URINE FEW /HPF; SQUAMOUS EPITHELIAL CELL,UR RARE /HPF; WBC,URINE >100 /HPF
[2021-03-24 22:07] LABS: YEAST,URINE RARE /HPF
[2021-03-24] MEDS ORDERED: CEPH500T PO (22:10)
[2021-03-24] MEDS ORDERED: CEPHALEXIN 250 MG (KEFLEX) CAP PO ONE (22:15)
[2021-03-24 22:27] VITALS: BP 123/80
== END 2021-03-24 22:26 | disposition home or self-care (01) ==
LOC: EDUNIT# 21:18 → ER FS 21:20
DX: R33.9 Retention of urine, unspecified (principal); I25.2 Old myocardial infarction; I10 Essential (primary) hypertension; K21.9 Gastro-esophageal reflux disease without esophagitis; N40.0 Benign prostatic hyperplasia without lower urinary tract symptoms; E78.00 Pure hypercholesterolemia, unspecified; Z79.899 Other long term (current) drug therapy
CPT/HCPCS: 51702; 81000; 87077; 87088

== ENCOUNTER 2021-03-29 09:00 | Outpatient (RCR) | payer MEDICARE ==
[~2021-03-29 09:00] MED LIST changes: +CEPH500T PO
[2021-04-12] MEDS ORDERED: NITR100C PO (17:51)
[2021-04-29] MEDS ORDERED: CIPR500T5 PO (22:29)
== END 2021-05-13 | disposition home or self-care (01) ==
LOC: ONC 09:00
PROVIDERS: ATTEND Radiology Radiation Oncology
DX: Z51.0 Encounter for antineoplastic radiation therapy (principal); C61 Malignant neoplasm of prostate; I10 Essential (primary) hypertension; E78.00 Pure hypercholesterolemia, unspecified; K21.9 Gastro-esophageal reflux disease without esophagitis; Z98.890 Other specified postprocedural states
CPT/HCPCS: 77295

== ENCOUNTER 2021-04-12 17:00 | Emergency (ER) | payer MEDICARE ==
[~2021-04-12] VITALS: Ht 180 cm; Wt 94.0 kg
--- NOTE | 2021-04-12 17:25 | ED GU-Female ---
General Chief Complaint: - Reproductive Stated Complaint: CATH PROBLEMS Source: patient Exam Limitations: no limitations History of Present Illness Date Seen by Provider: Apr 12, 2021 Time Seen by Provider: 17:07 Initial Comments Here with urinary retention. Patient has had catheter since December. The tape was not holding well on the catheter that he had replaced about 3 weeks ago. Ultimately he took it out at 10 AM in the hopes that maybe he would need it. He has been unable to urinate any significant amount since. Also states that he believes he has a urinary tract infection due to the look of the urine. Does have history of prostate cancer and has radiation pellets in currently. Timing/Duration: this morning, getting worse Severity/Quality: moderate Radiation: suprapubic Prior Genitourinary Problems: similar symptoms Modifying Factors: Improves With Urinating Associated Symptoms: abdominal pain (Suprapubic pain), dysuria; No fever/chills, No nausea/vomiting Allergies and Home Medications Allergies Coded Allergies: No Known Drug Allergies (Unverified , 01/19/21) Patient Home Medication List Home Medication List Reviewed: Yes Cephalexin (Cephalexin) 500 Mg Tablet, 500 MG PO TID Prescribed by: ROCKY MONTOYA on 03/24/212209 Ciprofloxacin HCl (Cipro) 500 Mg Tablet, 500 MG PO BID Prescribed by: KAITLYNN BARRIOS on 01/26/21 1107 Ketorolac Tromethamine (Ketorolac Tromethamine) 10 Mg Tablet, 10 MG PO Q6H Prescribed by: KAITLYNN BARRIOS on 01/26/21 1107 Loratadine (Claritin) 10 Mg Capsule, 10 MG PO DAILY, (Reported) Entered as Reported by: LANIE MAN on 01/19/21 1341 Pantoprazole Sodium (Pantoprazole Sodium) 40 Mg Tablet.dr, 40 MG PO BID, (Reported) Entered as Reported by: LANIE MAN on 01/19/21 1341 Perindopril Erbumine (Perindopril Erbumine) 8 Mg Tablet, 8 MG PO DAILY, (Reported) Entered as Reported by: LANIE MAN on 01/19/21 1341 Phenazopyridine HCl (Pyridium) 200 Mg Tablet, 1 TAB PO TID Prescribed by: KAITLYNN BARRIOS on 01/26/21 1107 Phenazopyridine HCl (Pyridium) 100 Mg Tablet, 100 MG PO TID Prescribed by: GELA PARIS on 02/18/21 1150 Simvastatin (Simvastatin) 40 Mg Tablet, 40 MG PO DAILY, (Reported) Entered as Reported by: LANIE MAN on 01/19/21 1341 Sulfamethoxazole/Trimethoprim (Bactrim Ds Tablet) 1 Each Tablet, 1 EACH PO BID Prescribed by: YURY SEPULVEDA on 02/23/21 1631 Tamsulosin HCl (Flomax) 0.4 Mg Cap, 0.4 MG PO DAILY, (Reported) Entered as Reported by: LANIE MAN on 01/19/21 1341 Review of Systems Review of Systems Constitutional: see HPI; No chills, No fever Respiratory: no symptoms reported Cardiovascular: no symptoms reported Gastrointestinal: see HPI Genitourinary: pain, urgency Psychiatric/Neurological: No Symptoms Reported Past Dytsypz-Qtlpic-Zbpqvi Hx Patient Social History Tobacco Use?: No Use of E-Cig and/or Vaping dev: No Substance use?: No Alcohol Use?: No Pt feels they are or have been: No Immunizations Up To Date First/Initial COVID19 Vaccinat: Zigabid August 2020 Second COVID19 Vaccination Maged: August Third COVID19 Vaccination Date: August Seasonal Allergies Seasonal Allergies: Yes Past Medical History Surgery/Hospitalization HX: PROSTATE CANCER; URINARY RETENTION; BPH; HIGH CHOLESTEROL; GERD Surgeries: Yes (TRUS PROSTATE BX, COLONOSCOPY, HEART CATH, ROTATOR CUFF) Respiratory: No Currently Using CPAP: No Currently Using BIPAP: No Cardiac: Yes (CARDIOVASCULAR DX, CARDIAC STENTS) Heart Attack, High Cholesterol, Hypertension Neurological: No Genitourinary: Yes (BPH WITH LUTS) Benign Prostatic Hyperpl, Prostate Problems Gastrointestinal: Yes Gastroesophageal Reflux, Hiatal Hernia Musculoskeletal: Yes Arthritis Endocrine: No HEENT: Yes Cataract Hearing Impairment: Hard of Hearing Prostate Psychosocial: No Integumentary: No Blood Disorders: No Family Medical History Reviewed Nursing Family Hx Physical Exam Vital Signs Vital Signs - First Documented 04/12/21 17:35 Temp 36.6 Pulse 110 B/P (MAP) 184/83 (116) Pulse Ox 14 O2 Delivery Room Air Capillary Refill : Height, Weight, BMI Height: '" Weight: lbs. oz. kg; 28.00 BMI Method: General Appearance: WD/WN, no apparent distress Cardiovascular: regular rate, rhythm, no murmur Respiratory: lungs clear, normal breath sounds Gastrointestinal: soft, distended (Suprapubic), tenderness (Suprapubic) Back: normal inspection, no CVA tenderness, no vertebral tenderness Neurologic/Psychiatric: alert, oriented x 3 Skin: normal color, warm/dry Progress/Results/Core Measures Suspected Sepsis SIRS Temperature: Pulse: Respiratory Rate: Blood Pressure / Mean: Results/Orders Lab Results Laboratory Tests Test 04/12/21 17:24 Range/Units Urine Color YELLOW Urine Clarity CLOUDY Urine pH 6.0 5-9 Urine Specific [place] 1.010 L 1.016-1.022 Urine Protein NEGATIVE NEGATIVE Urine Glucose (UA) NEGATIVE NEGATIVE Urine Ketones NEGATIVE NEGATIVE Urine Nitrite NEGATIVE NEGATIVE Urine Bilirubin NEGATIVE NEGATIVE Urine Urobilinogen 0.2 < = 1.0 MG/DL Urine Leukocyte Esterase 2+ H NEGATIVE Urine RBC (Auto) TRACE-I H NEGATIVE Urine RBC NONE /HPF Urine WBC 25-50 H /HPF Urine Squamous Epithelial Cells NONE /HPF Urine Crystals NONE /LPF Urine Bacteria LARGE H /HPF Urine Casts NONE /LPF Urine Mucus NEGATIVE /LPF Urine Culture Indicated YES My Orders Orders - CRISTIAN AGGARWAL MD Catheter(Urinary) Insert & Ass 03,15 (04/12/21 17:17) Bladder Scan (04/12/21 17:17) Ua Culture If Indicated (04/12/21 17:17) Urine Culture (04/12/21 17:24) Vital Signs/I&O 04/12/21 17:35 Temp 36.6 Pulse 110 B/P (MAP) 184/83 (116) Pulse Ox 14 O2 Delivery Room Air Capillary Refill : Progress Note : Progress Note Seen and evaluated. Bladder scan, Duffy cath and UA ordered. Monitor patient. 1748: UA positive and does show findings concerning for urinary tract infection. Patient has had a variety of infections over the last several months. Nitrofurantoin seems to cover both. We will use this in a 5-day dosing due to age. His recent kidney function is normal. He is improved with catheter in place. Discharged home with return precautions. Patient verbalized understanding of instructions and agreement with plan. Departure Impression Primary Impression: Urinary tract infection Qualified Codes: N30.00 - Acute cystitis without hematuria Additional Impression: Acute urinary retention Disposition: HOME, SELF-CARE Condition: Improved Departure-Patient Inst. Decision time for Depature: 17:49 Referrals: BENTLEY MAN MD (PCP/Family) Primary Care Physician Patient Instructions: Urinary Tract Infection, Adult (DC), Urinary Retention (DC) Add. Discharge Instructions: All discharge instructions reviewed with patient and/or family. Voiced un derstanding. Take medications as directed. Follow-up with your doctor for recheck and further evaluation. You should follow-up with your urologist or urologist of your choosing for recheck and further evaluation as well within the next week or so. Return for worse pain, fever, vomiting, weakness, breathing problems or other concerns as needed. Scripts Nitrofurantoin Macrocrystal (Nitrofurantoin) 100 Mg Capsule 100 MG PO BID, #10 CAP 0 Refills Prov: CRISTIAN AGGARWAL MD 04/12/21 CRISTIAN AGGARWAL MD Apr 12, 2021 17:25
[2021-04-12 17:32] LABS: BILIRUBIN,URINE NEGATIVE (NEGATIVE); CLARITY,URINE CLOUDY; COLOR,URINE YELLOW; GLUCOSE, URINE (UA) NEGATIVE (NEGATIVE); KETONES,URINE NEGATIVE (NEGATIVE); LEUKOCYTE ESTERASE ,URINE 2+ (NEGATIVE); NITRITE,URINE NEGATIVE (NEGATIVE); PROTEIN,URINE NEGATIVE (NEGATIVE)
[2021-04-12 17:38] LABS: BACTERIA,URINE LARGE /HPF; WBC,URINE 25-50 /HPF
[2021-04-12] MEDS ORDERED: NITR100C PO (17:51)
[2021-04-12 17:56] VITALS: BP 148/72
== END 2021-04-12 17:57 | disposition home or self-care (01) ==
LOC: EDUNIT# 17:00 → ER FS 17:01
DX: N39.0 Urinary tract infection, site not specified (principal); R33.9 Retention of urine, unspecified; I25.10 Atherosclerotic heart disease of native coronary artery without angina pectoris; I10 Essential (primary) hypertension; N40.0 Benign prostatic hyperplasia without lower urinary tract symptoms; K21.9 Gastro-esophageal reflux disease without esophagitis; E78.00 Pure hypercholesterolemia, unspecified; Z79.899 Other long term (current) drug therapy
CPT/HCPCS: 51702; 81000; 87077; 87088; 87186

== ENCOUNTER 2021-04-29 20:40 | Emergency (ER) | payer MEDICARE ==
[~2021-04-29 20:40] MED LIST changes: +NITR100C PO
[2021-04-29 21:38] LABS: BILIRUBIN,URINE NEGATIVE (NEGATIVE); CLARITY,URINE SLIGHTLY CLOUDY; COLOR,URINE YELLOW; GLUCOSE, URINE (UA) NEGATIVE (NEGATIVE); KETONES,URINE NEGATIVE (NEGATIVE); NITRITE,URINE NEGATIVE (NEGATIVE); PROTEIN,URINE TRACE (NEGATIVE)
[2021-04-29 21:39] LABS: BACTERIA,URINE TRACE /HPF; LEUKOCYTE ESTERASE ,URINE 1+ (NEGATIVE); RBC,URINE 0-2 /HPF; SQUAMOUS EPITHELIAL CELL,UR 0-2 /HPF; WBC,URINE 50-100 /HPF
--- NOTE | 2021-04-29 21:44 | ED GU-Male ---
General Chief Complaint: - Reproductive Stated Complaint: CATH PROBLEMS Nursing Triage Note: Pt states he had his urinary catheter taken out today and now is complaining of urinary retention. Source: patient History of Present Illness Date Seen by Provider: Apr 29, 2021 Time Seen by Provider: 21:21 Initial Comments 75-year-old male presenting with complaints of dribbling and difficulty urinating. He had Duffy catheter taken out by Dr. Raygoza today in the office. Since then he has only been able to dribble some urine. He is building up pressure and pain in his lower abdomen. Previously when this is happened he had obstruction and retention. He was concerned that this was happening again so he came to the ED. He has been able to have some urine come out but it was only small amounts and it was just dribbling. He was having some burning discomfort with urination. He denies any fever or chills. He has some discomfort to suprapubic area. He reports this feels very similar to when he has had retention in the past. He denies any vomiting, nausea, fever, chills. He just finished a course of Cipro on Sunday the . Timing/Duration: this afternoon Severity/Quality: moderate Location: suprapubic Radiation: suprapubic Activities at Onset: none Prior Genitourinary Problems: similar symptoms Associated Symptoms: abdominal pain (Suprapubic tenderness); No diaphoresis; dysuria; No fever/chills; loss of bladder control; No lower back pain, No lumps, No mass, No nausea/vomiting, No nocturia, No polyuria, No swelling, No syncope Allergies and Home Medications Allergies Coded Allergies: No Known Drug Allergies (Unverified , 01/19/21) Patient Home Medication List Home Medication List Reviewed: Yes Cephalexin (Cephalexin) 500 Mg Tablet, 500 MG PO TID Prescribed by: ROCKY MONTOYA on 03/24/212209 Ciprofloxacin HCl (Cipro) 500 Mg Tablet, 500 MG PO BID Prescribed by: KAITLYNN BARRIOS on 01/26/21 1107 Ciprofloxacin HCl (Ciprofloxacin HCl) 500 Mg Tablet, 500 MG PO BID Prescribed by: SHMUEL SMALLS on 04/29/219 Ketorolac Tromethamine (Ketorolac Tromethamine) 10 Mg Tablet, 10 MG PO Q6H Prescribed by: KAITLYNN BARRIOS on 01/26/21 1107 Loratadine (Claritin) 10 Mg Capsule, 10 MG PO DAILY, (Reported) Entered as Reported by: LANIE HERNANDEZ on 01/19/21 134 Nitrofurantoin Macrocrystal (Nitrofurantoin) 100 Mg Capsule, 100 MG PO BID Prescribed by: CRISTIAN AGGARWAL on 04/12/21 1751 Pantoprazole Sodium (Pantoprazole Sodium) 40 Mg Tablet.dr, 40 MG PO BID, (Reported) Entered as Reported by: LANIE HERNANDEZ on 01/19/21 134 Perindopril Erbumine (Perindopril Erbumine) 8 Mg Tablet, 8 MG PO DAILY, (Reported) Entered as Reported by: LANIE HERNANDEZ on 01/19/21 134 Phenazopyridine HCl (Pyridium) 200 Mg Tablet, 1 TAB PO TID Prescribed by: KAITLYNN BARRIOS on 01/26/21 1107 Phenazopyridine HCl (Pyridium) 100 Mg Tablet, 100 MG PO TID Prescribed by: GELA PARIS on 02/18/21 1150 Simvastatin (Simvastatin) 40 Mg Tablet, 40 MG PO DAILY, (Reported) Entered as Reported by: LANIE HERNANDEZ on 01/19/21 134 Sulfamethoxazole/Trimethoprim (Bactrim Ds Tablet) 1 Each Tablet, 1 EACH PO BID Prescribed by: YURY SEPULVEDA on 02/23/21 1631 Tamsulosin HCl (Flomax) 0.4 Mg Cap, 0.4 MG PO DAILY, (Reported) Entered as Reported by: LANIE HERNANDEZ on 01/19/21 1341 Review of Systems Review of Systems Constitutional: No chills, No fever EENTM: no symptoms reported Respiratory: no symptoms reported Cardiovascular: no symptoms reported Gastrointestinal: see HPI Genitourinary: see HPI Musculoskeletal: no symptoms reported Skin: No rash Psychiatric/Neurological: Headache Past Sdduzwq-Powdtw-Ubodli Hx Patient Social History Tobacco Use?: No Use of E-Cig and/or Vaping dev: No Substance use?: No Alcohol Use?: No Pt feels they are or have been: No Immunizations Up To Date First/Initial COVID19 Vaccinat: Jamaal Bonfaire August 2020 Second COVID19 Vaccination Maged: J AND J AUGUST Third COVID19 Vaccination Date: August Seasonal Allergies Seasonal Allergies: Yes Past Medical History Surgery/Hospitalization HX: PROSTATE CANCER; URINARY RETENTION; BPH; HIGH CHOLESTEROL; GERD Surgeries: Yes (TRUS PROSTATE BX, COLONOSCOPY, HEART CATH, ROTATOR CUFF) Respiratory: No Currently Using CPAP: No Currently Using BIPAP: No Cardiac: Yes (CARDIOVASCULAR DX, CARDIAC STENTS) Heart Attack, High Cholesterol, Hypertension Neurological: No Genitourinary: Yes (BPH WITH LUTS) Benign Prostatic Hyperpl, Prostate Problems Gastrointestinal: Yes Gastroesophageal Reflux, Hiatal Hernia Musculoskeletal: Yes Arthritis Endocrine: No HEENT: Yes Cataract Hearing Impairment: Hard of Hearing Prostate Psychosocial: No Integumentary: No Blood Disorders: No Physical Exam Vital Signs Vital Signs - First Documented 04/29/21 20:50 Temp 36.3 Pulse 102 Resp 18 B/P (MAP) 185/111 (135) Pulse Ox 98 O2 Delivery Room Air Capillary Refill : Less Than 3 Seconds Height, Weight, BMI Height: '" Weight: lbs. oz. kg; 29.00 BMI Method: General Appearance: WD/WN, no apparent distress Neck: supple Cardiovascular: normal peripheral pulses, regular rate, rhythm Gastrointestinal: normal bowel sounds, soft, no pulsatile mass; No distended, No guarding, No rebound; tenderness (Suprapubic tenderness to palpation) Back: No no CVA tenderness, No no vertebral tenderness Extremities: normal range of motion, non-tender, normal capillary refill Neurologic/Psychiatric: alert, oriented x 3 Skin: normal color, warm/dry Progress/Results/Core Measures Suspected Sepsis SIRS Temperature: Pulse: 102 Respiratory Rate: 18 Blood Pressure 185 /111 Mean: 135 Results/Orders Lab Results Laboratory Tests Test 04/29/21 21:30 Range/Units Urine Color YELLOW Urine Clarity SLIGHTLY CLOUDY Urine pH 6.0 5-9 Urine Specific [place] 1.015 L 1.016-1.022 Urine Protein TRACE H NEGATIVE Urine Glucose (UA) NEGATIVE NEGATIVE Urine Ketones NEGATIVE NEGATIVE Urine Nitrite NEGATIVE NEGATIVE Urine Bilirubin NEGATIVE NEGATIVE Urine Urobilinogen 0.2 < = 1.0 MG/DL Urine Leukocyte Esterase 1+ H NEGATIVE Urine RBC (Auto) 1+ H NEGATIVE Urine RBC 0-2 /HPF Urine WBC 50-100 H /HPF Urine Squamous Epithelial Cells 0-2 /HPF Urine Crystals NONE /LPF Urine Bacteria TRACE /HPF Urine Casts NONE /LPF Urine Mucus NEGATIVE /LPF Urine Culture Indicated YES My Orders Orders - SHMUEL SMALLS MD Bladder Scan (04/29/21 20:54) Ua Culture If Indicated (04/29/21 20:54) Urine Culture (04/29/21 21:30) Duffy Cath (04/29/21 22:01) Ciprofloxacin Tablet (Cipro Tablet) (04/29/21 22:01) Vital Signs/I&O 04/29/21 04/29/21 20:50 22:33 Temp 36.3 Pulse 102 83 Resp 18 16 B/P (MAP) 185/111 (135) 140/80 Pulse Ox 98 97 O2 Delivery Room Air Room Air Capillary Refill : Less Than 3 Seconds Blood Pressure Mean: 135 Progress Note : Progress Note Patient was able to dribble out a small amount of urine. This did show signs of infection. A bladder scan showed a little over 200 mL of urine present. This was after attempted emptying of bladder with urination. Counseled patient that the infection could cause some of the symptoms but he also may have developing retention again. Since it was a weekend could place another catheter to ensure he does not go into full-blown retention however retain more than a liter of urine. Also treat with antibiotics. Culture the urine. Follow-up with Dr. Raygoza and/or Dr. Hernandez this upcoming week about need for recurrent Duffy catheter. Departure Impression Primary Impression: Cystitis without hematuria Additional Impression: Urinary retention with incomplete bladder emptying Disposition: 01 HOME, SELF-CARE Condition: Stable Departure-Patient Inst. Decision time for Depature: 22:27 Referrals: BENTLEY HERNANDEZ MD (PCP/Family) Primary Care Physician Patient Instructions: Urinary Tract Infection, Adult ED, Urinary Retention (DC), How to Care for Your Duffy Catheter, Male Add. Discharge Instructions: Take the antibiotic to treat for urine infection. Follow up with Dr. Raygoza and Dr. Hernandez about your catheter and recurrent issues with infection and difficulty emptying your bladder. All discharge instructions reviewed with patient and/or family. Voiced understanding. Scripts Ciprofloxacin HCl (Ciprofloxacin HCl) 500 Mg Tablet 500 MG PO BID for UTI for 7 Days, #14 TAB 0 Refills Prov: SHMUEL SMALLS MD 04/29/21 SHMUEL SMALLS MD Apr 29, 2021 21:44
[2021-04-29] MEDS ORDERED: CIPROFLOXACIN 500 MG (CIPRO) TABLET PO STA (22:01)
[2021-04-29] MEDS ORDERED: CIPR500T5 PO (22:29)
[2021-04-29 22:33] VITALS: BP 140/80
== END 2021-04-29 22:36 | disposition home or self-care (01) ==
LOC: EDUNIT# 20:40 → ER FS 20:41
DX: N30.90 Cystitis, unspecified without hematuria (principal); R33.9 Retention of urine, unspecified; I25.2 Old myocardial infarction; I10 Essential (primary) hypertension; E78.00 Pure hypercholesterolemia, unspecified; K21.9 Gastro-esophageal reflux disease without esophagitis; N40.0 Benign prostatic hyperplasia without lower urinary tract symptoms; Z79.899 Other long term (current) drug therapy
CPT/HCPCS: 51702; 81000; 87088

== ENCOUNTER 2021-05-23 10:25 | Emergency (ER) | payer MEDICARE ==
[~2021-05-23 10:25] MED LIST changes: +CIPR500T5 PO
[2021-05-23 10:40] VITALS: BP 154/101
--- NOTE | 2021-05-23 10:50 | ED GU-Male ---
General Stated Complaint: CATHETER ISSUE History of Present Illness Date Seen by Provider: May 23, 2021 Time Seen by Provider: 10:48 Initial Comments 75-year-old male presents for a catheter check and would like a urinalysis. Patient reports he has had an urinary catheter for about the last 4 months. That he has had difficulty over the last couple days with the tape on the leg bag. Reports that on May 01 that he had a catheter exchanged by Dr. Chavez. Patient would like to have his urine checked because he is currently being treated for chronic catheter associated UTI. He does not have any fevers chills or associated symptoms. Patient has a follow-up appointment on the with Dr. Chowdhury Allergies and Home Medications Allergies Coded Allergies: No Known Drug Allergies (Unverified , 01/19/21) Patient Home Medication List Home Medication List Reviewed: Yes Cephalexin (Cephalexin) 500 Mg Tablet, 500 MG PO TID Prescribed by: ROCKY MONTOYA on 03/24/21 2210 Ciprofloxacin HCl (Cipro) 500 Mg Tablet, 500 MG PO BID Prescribed by: KAITLYNN BARRIOS on 01/26/21 1107 Ciprofloxacin HCl (Ciprofloxacin HCl) 500 Mg Tablet, 500 MG PO BID Prescribed by: SHMUEL SMLALS on 04/29/21 2229 Ketorolac Tromethamine (Ketorolac Tromethamine) 10 Mg Tablet, 10 MG PO Q6H Prescribed by: KAITLYNN BARRIOS on 01/26/21 1107 Loratadine (Claritin) 10 Mg Capsule, 10 MG PO DAILY, (Reported) Entered as Reported by: LANIE HERNANDEZ on 01/19/21 1341 Nitrofurantoin Macrocrystal (Nitrofurantoin) 100 Mg Capsule, 100 MG PO BID Prescribed by: CRISTIAN AGGARWAL on 04/12/21 175 Pantoprazole Sodium (Pantoprazole Sodium) 40 Mg Tablet., 40 MG PO BID, (Reported) Entered as Reported by: LANIE HERNANDEZ on 01/19/21 1341 Perindopril Erbumine (Perindopril Erbumine) 8 Mg Tablet, 8 MG PO DAILY, (Reported) Entered as Reported by: LANIE HERNANDEZ on 01/19/21 1341 Phenazopyridine HCl (Pyridium) 200 Mg Tablet, 1 TAB PO TID Prescribed by: KAITLYNN BARRIOS on 01/26/21 1107 Phenazopyridine HCl (Pyridium) 100 Mg Tablet, 100 MG PO TID Prescribed by: GELA PARIS on 02/18/21 1150 Simvastatin (Simvastatin) 40 Mg Tablet, 40 MG PO DAILY, (Reported) Entered as Reported by: LANIE HERNANDEZ on 01/19/21 1341 Sulfamethoxazole/Trimethoprim (Bactrim Ds Tablet) 1 Each Tablet, 1 EACH PO BID Prescribed by: YURY SEPULVEDA on 02/23/21 1631 Tamsulosin HCl (Flomax) 0.4 Mg Cap, 0.4 MG PO DAILY, (Reported) Entered as Reported by: LANIE HERNANDEZ on 01/19/21 1341 Review of Systems Review of Systems Constitutional: No chills, No fever EENTM: no symptoms reported Respiratory: no symptoms reported Cardiovascular: no symptoms reported Genitourinary: see HPI Musculoskeletal: no symptoms reported Skin: no symptoms reported Psychiatric/Neurological: No Symptoms Reported Endocrine: No Symptoms Reported Past Tyquibd-Utgpyb-Jhasgb Hx Immunizations Up To Date First/Initial COVID19 Vaccinat: Silenseed August 2020 Second COVID19 Vaccination Maged: August Third COVID19 Vaccination Date: August Seasonal Allergies Seasonal Allergies: Yes Past Medical History Surgery/Hospitalization HX: PROSTATE CANCER; URINARY RETENTION; BPH; HIGH CHOLESTEROL; GERD Surgeries: Yes (TRUS PROSTATE BX, COLONOSCOPY, HEART CATH, ROTATOR CUFF) Respiratory: No Currently Using CPAP: No Currently Using BIPAP: No Cardiac: Yes (CARDIOVASCULAR DX, CARDIAC STENTS) Heart Attack, High Cholesterol, Hypertension Neurological: No Genitourinary: Yes (BPH WITH LUTS) Benign Prostatic Hyperpl, Prostate Problems Gastrointestinal: Yes Gastroesophageal Reflux, Hiatal Hernia Musculoskeletal: Yes Arthritis Endocrine: No HEENT: Yes Cataract Hearing Impairment: Hard of Hearing Prostate Psychosocial: No Integumentary: No Blood Disorders: No Physical Exam Vital Signs Vital Signs - First Documented 05/23/21 10:40 Temp 36.4 Pulse 114 Resp 18 B/P (MAP) 154/101 (118) O2 Delivery Room Air Capillary Refill : Height, Weight, BMI Height: '" Weight: lbs. oz. kg; 29.00 BMI Method: General Appearance: WD/WN, no apparent distress HEENT: PERRL/EOMI Cardiovascular: normal peripheral pulses, regular rate, rhythm Respiratory: lungs clear, normal breath sounds Gastrointestinal: non tender, soft Male: other (Urinary catheter in place) Extremities: normal range of motion Neurologic/Psychiatric: alert, normal mood/affect, oriented x 3 Progress/Results/Core Measures Suspected Sepsis SIRS Temperature: Pulse: Respiratory Rate: Blood Pressure / Mean: Results/Orders Lab Results Laboratory Tests Test 05/23/21 11:08 Range/Units Urine Color YELLOW Urine Clarity CLOUDY Urine pH 7.0 5-9 Urine Specific [place] 1.020 1.016-1.022 Urine Protein 2+ H NEGATIVE Urine Glucose (UA) NEGATIVE NEGATIVE Urine Ketones TRACE H NEGATIVE Urine Nitrite POSITIVE H NEGATIVE Urine Bilirubin NEGATIVE NEGATIVE Urine Urobilinogen 0.2 < = 1.0 MG/DL Urine Leukocyte Esterase 1+ H NEGATIVE Urine RBC (Auto) 3+ H NEGATIVE Urine RBC 50-100 H /HPF Urine WBC 50-100 H /HPF Urine Squamous Epithelial Cells NONE /HPF Urine Crystals NONE /LPF Urine Bacteria FEW H /HPF Urine Casts NONE /LPF Urine Mucus NEGATIVE /LPF Urine Culture Indicated YES My Orders Orders - YURY SEPULVEDA DO Ua Culture If Indicated (05/23/21 10:47) Urine Culture (05/23/21 11:08) Vital Signs/I&O 05/23/21 10:40 Temp 36.4 Pulse 114 Resp 18 B/P (MAP) 154/101 (118) O2 Delivery Room Air Capillary Refill : Progress Note : Progress Note Patient initially requested just a new bag, then he changed his request to whole no Duffy which was replaced. Patient UA is similar to his UA on 04/29/2021. At that time a culture was obtained and did not show any growth. Based on his indwelling catheter and no growth on his previous culture I will not treat him for UTI at this time. Patient will be contacted if we have a culture that shows any growth. He should keep his appointment with Dr. Chavez on the . Patient was stable and discharged home Departure Impression Primary Impression: Duffy catheter problem Qualified Codes: T83.9XXA - Unspecified complication of genitourinary prosthetic device, implant and graft, initial encounter Disposition: 01 HOME, SELF-CARE Condition: Stable Departure-Patient Inst. Referrals: BENTLEY HERNANDEZ MD (PCP/Family) Primary Care Physician Patient Instructions: How to Care for Your Duffy Catheter, Male Add. Discharge Instructions: Please keep your scheduled appointment on the with Dr. Harvey. Follow-up with Dr. Hernandez with any other concerns between your ER visit and your next appointment with him Copy Copies To 1: GALDINO HARVEY MD, TREVOR L DO May 23, 2021 10:50
[2021-05-23 11:20] LABS: BILIRUBIN,URINE NEGATIVE (NEGATIVE); CLARITY,URINE CLOUDY; COLOR,URINE YELLOW; GLUCOSE, URINE (UA) NEGATIVE (NEGATIVE); KETONES,URINE TRACE (NEGATIVE); LEUKOCYTE ESTERASE ,URINE 1+ (NEGATIVE); NITRITE,URINE POSITIVE (NEGATIVE); PROTEIN,URINE 2+ (NEGATIVE)
[2021-05-23 11:33] LABS: BACTERIA,URINE FEW /HPF; RBC,URINE 50-100 /HPF; WBC,URINE 50-100 /HPF
== END 2021-05-23 11:56 | disposition home or self-care (01) ==
LOC: EDUNIT# 10:25 → ER FS 10:26
DX: T83.9XXA Unspecified complication of genitourinary prosthetic device, implant and graft, initial encounter (principal); I10 Essential (primary) hypertension; I25.2 Old myocardial infarction; E78.00 Pure hypercholesterolemia, unspecified; K21.9 Gastro-esophageal reflux disease without esophagitis; Z87.438 Personal history of other diseases of male genital organs; Z85.46 Personal history of malignant neoplasm of prostate; Z79.899 Other long term (current) drug therapy
CPT/HCPCS: 81000; 87077; 87088; 87186; 99282

== ENCOUNTER 2021-06-04 13:58 | Emergency (ER) | payer MEDICARE ==
[~2021-06-04] VITALS: Ht 180.3 cm; Wt 95.0 kg
[2021-06-04 14:05] VITALS: BP 124/69
--- NOTE | 2021-06-04 14:27 | ED Abdominal Pain ---
General Stated Complaint: SUPRAPUBIC PAIN; URINARY DIFFICULTY Source of Information: Patient Exam Limitations: No Limitations History of Present Illness Date Seen by Provider: Jun 04, 2021 Time Seen by Provider: 14:00 Initial Comments 75-year-old male with past medical history of prostate cancer coming in due to urinary retention with some incontinence. Has had a Duffy for the past 4 months that was taken out last Sunday. Since then he has been unable to control when he goes to the bathroom sometimes and has been having to use a pad. When he tries to go urinate, he is unable to relieve himself. Having some lower abdominal discomfort that is mild, constant, worsened this morning. Took an Azo which seemed to help a little bit. Is also having some dysuria and says he has chronic UTI. Last took antibiotics last week. Denying any fever, chest pain, shortness of breath, nausea, vomiting, diarrhea, or any other concerns. Has an appointment with Dr. Harvey on Sunday. Allergies and Home Medications Allergies Coded Allergies: No Known Drug Allergies (Unverified , 01/19/21) Patient Home Medication List Home Medication List Reviewed: Yes Cephalexin (Cephalexin) 500 Mg Tablet, 500 MG PO TID Prescribed by: ROCKY MONTOYA on 03/24/21 2210 Ciprofloxacin HCl (Cipro) 500 Mg Tablet, 500 MG PO BID Prescribed by: KAITLYNN BARRIOS on 01/26/21 1107 Ciprofloxacin HCl (Ciprofloxacin HCl) 500 Mg Tablet, 500 MG PO BID Prescribed by: SHMUEL SMALLS on 04/29/21 2229 Ketorolac Tromethamine (Ketorolac Tromethamine) 10 Mg Tablet, 10 MG PO Q6H Prescribed by: KAILTYNN BARRIOS on 01/26/21 1107 Loratadine (Claritin) 10 Mg Capsule, 10 MG PO DAILY, (Reported) Entered as Reported by: LANIE MAN on 01/19/21 1341 Nitrofurantoin Macrocrystal (Nitrofurantoin) 100 Mg Capsule, 100 MG PO BID Prescribed by: CRISTIAN AGGARWAL on 04/12/21 175 Pantoprazole Sodium (Pantoprazole Sodium) 40 Mg Tablet.dr 40 MG PO BID, (Reported) Entered as Reported by: LANIE MAN on 01/19/21 1341 Perindopril Erbumine (Perindopril Erbumine) 8 Mg Tablet, 8 MG PO DAILY, (Reported) Entered as Reported by: LANIE MAN on 01/19/21 1341 Phenazopyridine HCl (Pyridium) 200 Mg Tablet, 1 TAB PO TID Prescribed by: KAITLYNN BARRIOS on 01/26/21 1107 Phenazopyridine HCl (Pyridium) 100 Mg Tablet, 100 MG PO TID Prescribed by: GELA PARIS on 02/18/21 1150 Simvastatin (Simvastatin) 40 Mg Tablet, 40 MG PO DAILY, (Reported) Entered as Reported by: LANIE MAN on 01/19/21 1341 Sulfamethoxazole/Trimethoprim (Bactrim Ds Tablet) 1 Each Tablet, 1 EACH PO BID Prescribed by: YURY SEPULVEDA on 02/23/21 1631 Tamsulosin HCl (Flomax) 0.4 Mg Cap, 0.4 MG PO DAILY, (Reported) Entered as Reported by: LANIE MAN on 01/19/21 1341 Review of Systems Review of Systems Constitutional: No chills, No fever EENTM: No Blurred Vision Respiratory: Denies Cough, Denies Shortness of Air Cardiovascular: Denies Chest Pain Gastrointestinal: Abdominal Pain; Denies Diarrhea, Denies Nausea, Denies Vomiting Genitourinary: Burning Musculoskeletal: no symptoms reported Skin: no symptoms reported Psychiatric/Neurological: No Symptoms Reported Endocrine: No Symptoms Reported Hematologic/Lymphatic: No Symptoms Reported All Other Systems Reviewed Negative Unless Noted: Yes Past Ucjfedq-Skjsxc-Ytqpmy Hx Immunizations Up To Date First/Initial COVID19 Vaccinat: 08/2020 Second COVID19 Vaccination Maged: August Third COVID19 Vaccination Date: August Seasonal Allergies Seasonal Allergies: Yes Past Medical History Surgery/Hospitalization HX: PROSTATE CANCER; URINARY RETENTION; BPH; HIGH CHOLESTEROL; GERD Surgeries: Yes (TRUS PROSTATE BX, COLONOSCOPY, HEART CATH, ROTATOR CUFF) Respiratory: No Currently Using CPAP: No Currently Using BIPAP: No Cardiac: Yes (CARDIOVASCULAR DX, CARDIAC STENTS) Heart Attack, High Cholesterol, Hypertension Neurological: No Genitourinary: Yes (BPH WITH LUTS) Benign Prostatic Hyperpl, Prostate Problems Gastrointestinal: Yes Gastroesophageal Reflux, Hiatal Hernia Musculoskeletal: Yes Arthritis Endocrine: No HEENT: Yes Cataract Hearing Impairment: Hard of Hearing Prostate Psychosocial: No Integumentary: No Blood Disorders: No Physical Exam Vital Signs Capillary Refill : Height/Weight/BMI Height: '" Weight: lbs. oz. kg; 29.00 BMI Method: General Appearance: WD/WN, no apparent distress HEENT: PERRL/EOMI, normal ENT inspection, pharynx normal Neck: non-tender, full range of motion, supple, normal inspection Respiratory: chest non-tender, lungs clear, normal breath sounds, no respiratory distress, no accessory muscle use Cardiovascular: regular rate, rhythm, no edema, no murmur Gastrointestinal: normal bowel sounds, soft; No distended, No guarding, No rebound; tenderness (Mild lower abdominal tenderness) Genital/Rectal: normal genital exam Extremities: normal range of motion, non-tender, normal inspection, no pedal edema, no calf tenderness, normal capillary refill Back: normal inspection, no CVA tenderness, no vertebral tenderness Neurologic/Psychiatric: no motor/sensory deficits, alert, normal mood/affect Skin: normal color, warm/dry Lymphatic: no adenopathy Progress/Results/Core Measures Results/Orders Lab Results Laboratory Tests Test 06/04/21 14:27 Range/Units Urine Color YELLOW Urine Clarity CLEAR Urine pH 6.0 5-9 Urine Specific [place] 1.015 L 1.016-1.022 Urine Protein NEGATIVE NEGATIVE Urine Glucose (UA) NEGATIVE NEGATIVE Urine Ketones NEGATIVE NEGATIVE Urine Nitrite NEGATIVE NEGATIVE Urine Bilirubin NEGATIVE NEGATIVE Urine Urobilinogen 0.2 < = 1.0 MG/DL Urine Leukocyte Esterase NEGATIVE NEGATIVE Urine RBC (Auto) NEGATIVE NEGATIVE Urine RBC 5-10 H /HPF Urine WBC 0-2 /HPF Urine Crystals NONE /LPF Urine Bacteria TRACE /HPF Urine Casts NONE /LPF Urine Mucus NEGATIVE /LPF Urine Culture Indicated NO My Orders Orders - CHELSIE MOREIRA MD Catheter(Urinary) Insert & Ass 03,15 (06/04/21 14:27) Ua Culture If Indicated (06/04/21 14:27) Progress Progress Note : Progress Note 75-year-old male coming in with concerns for urinary retention. ABCs were intact and vitals were stable on presentation. Physical exam reassuring he has some tenderness and feels like a full bladder in his lower abdomen but no signs of peritonitis. Bladder scan with greater than 900 cc of urine. Duffy placed without difficulty with urinalysis without signs of infection. We will convert him to a leg bag and have him follow-up with Dr. Chowdhury in a couple days. I believe he stable for discharge with outpatient follow-up. He was sent home with strict return precautions Departure Impression Primary Impression: Acute urinary retention Additional Impression: Duffy catheter in place Disposition: HOME, SELF-CARE Condition: Stable Departure-Patient Inst. Decision time for Depature: 14:37 Referrals: BENTLEY MAN MD (PCP/Family) Primary Care Physician Patient Instructions: Urinary Retention Add. Discharge Instructions: You did have a lot of urine in your bladder so we placed a Duffy catheter again. Please follow-up with Dr. HARVEY to discuss when to take this out. Your urinalysis was normal without evidence of infection. CHELSIE MOREIRA MD Jun 04, 2021 14:27
[2021-06-04 14:34] LABS: BACTERIA,URINE TRACE /HPF; BILIRUBIN,URINE NEGATIVE (NEGATIVE); CLARITY,URINE CLEAR; COLOR,URINE YELLOW; GLUCOSE, URINE (UA) NEGATIVE (NEGATIVE); KETONES,URINE NEGATIVE (NEGATIVE); LEUKOCYTE ESTERASE ,URINE NEGATIVE (NEGATIVE); NITRITE,URINE NEGATIVE (NEGATIVE); PROTEIN,URINE NEGATIVE (NEGATIVE); WBC,URINE 0-2 /HPF
== END 2021-06-04 14:48 | disposition home or self-care (01) ==
LOC: EDUNIT# 13:58 → ER FS 14:00
DX: R33.9 Retention of urine, unspecified (principal); I25.2 Old myocardial infarction; I10 Essential (primary) hypertension; N40.0 Benign prostatic hyperplasia without lower urinary tract symptoms; E78.00 Pure hypercholesterolemia, unspecified; K21.9 Gastro-esophageal reflux disease without esophagitis; Z96.0 Presence of urogenital implants
CPT/HCPCS: 51702; 81000

== ENCOUNTER 2021-07-14 09:00 | Outpatient (RCR) | payer MEDICARE ==
[~2021-07-14 09:00] MED LIST changes: +PERI8TAB PO; -PERI8TAB2 PO
== END 2021-08-11 | disposition home or self-care (01) ==
LOC: ONC 09:00
PROVIDERS: ATTEND Radiology Radiation Oncology
DX: Z53.9 Procedure and treatment not carried out, unspecified reason (principal)
CPT/HCPCS: 99213

== ENCOUNTER 2021-10-20 09:41 | Outpatient (RCR) | payer MEDICARE | END 2021-11-10 | disposition home or self-care (01) | LOC: ONC 09:41 | PROVIDERS: ATTEND Radiology Radiation Oncology | DX: C61 Malignant neoplasm of prostate (principal) | CPT/HCPCS: 84153; G0463; 99213 ==

== ENCOUNTER 2022-04-13 10:54 | Outpatient (RCR) | payer MEDICARE | END 2022-05-13 | disposition home or self-care (01) | LOC: ONC 10:54 | PROVIDERS: ATTEND Radiology Radiation Oncology | DX: C61 Malignant neoplasm of prostate (principal); Z12.5 Encounter for screening for malignant neoplasm of prostate | CPT/HCPCS: G0103; G0463; 84153; 99213 ==

== ENCOUNTER 2022-09-14 09:37 | Outpatient (RCR) | payer MEDICARE | END 2022-10-11 | disposition home or self-care (01) | LOC: ONC 09:37 | PROVIDERS: ATTEND Radiology Radiation Oncology | DX: C61 Malignant neoplasm of prostate (principal) | CPT/HCPCS: 84153; G0463; 36415; 99213 ==

== ENCOUNTER 2023-03-20 08:38 | Outpatient (RCR) | payer MEDICARE | END 2023-04-12 | disposition home or self-care (01) | LOC: ONC 08:38 | PROVIDERS: ATTEND Radiology Radiation Oncology | DX: C61 Malignant neoplasm of prostate (principal) | CPT/HCPCS: 36415; 84153 ==